=== PATIENT | male | born 1945 | race African-American/Black ===

== ENCOUNTER 2021-03-22 17:36 | Inpatient (IN) | payer MEDICAID, MEDICARE ==
[~2021-03-22] VITALS: Ht 180.3 cm; Wt 73.6 kg
--- NOTE | 2021-03-22 18:52 | REP ---
INDICATION: left hip pain. COMPARISON: None. TECHNIQUE: AP view pelvis. FINDINGS: There is a left femoral neck fracture with medial angulation. Prosthesis is noted of the proximal right femur. There is no other evidence of acute fracture. A stent overlies the left hemipelvis. There is a stent in the region of the proximal right superficial femoral artery. IMPRESSION: Left femoral neck fracture with medial angulation. <Electronically signed by Max Prado > 03/22/21 [id number]
--- NOTE | 2021-03-22 18:54 | REP ---
INDICATION: left hip pain COMPARISON: None. TECHNIQUE: AP and lateral left femur. FINDINGS: There is a left femoral neck fracture with medial angulation. I see no other evidence of acute fracture or dislocation. IMPRESSION: Left femoral neck fracture with medial angulation. <Electronically signed by Max Prado > 03/22/21 [id number]
--- NOTE | 2021-03-22 18:56 | REP ---
INDICATION: left hip pain. COMPARISON: None. TECHNIQUE: Single portable AP view of the chest was performed. FINDINGS: No acute infiltrate is seen. The heart is not significantly enlarged. There is mild calcification and tortuosity of the thoracic aorta. There is a stent extending from the left subclavian region into the left upper extremity. IMPRESSION: No acute pulmonary disease. <Electronically signed by Max Prado > 03/22/21 [id number]
[2021-03-22 19:21] LABS: BASO % 0.3 % (0.0-1.0); EOS # 0.1 10^3/uL (0.0-0.5); EOS % 3.2 % (0.0-3.0); HEMATOCRIT 31.4 % (42.0-52.0); HEMOGLOBIN 9.6 g/dl (13.5-17.5); LYMPH # 0.5 10^3/uL (1.5-5.0); LYMPH % 15.7 % (24.0-44.0); MEAN CORPUSCULAR HEMOGLOBIN 28.1 pg (27.0-33.0); MEAN CORPUSCULAR HGB CONC 30.6 g/dl (32.0-36.5); MEAN CORPUSCULAR VOLUME 91.8 fl (80.0-96.0); MONO # 0.4 10^3/uL (0.0-0.8); MONO % 12.5 % (2.0-8.0); NEUTROPHILS # 2.3 10^3/uL (1.5-8.5); NEUTROPHILS % 67.7 % (36.0-66.0); RED BLOOD COUNT 3.42 10^6/uL (4.30-6.10); WHITE BLOOD COUNT 3.5 10^3/uL (4.0-10.0)
[2021-03-22] MEDS ORDERED: ELIQ5TAB PO ×2 (19:26→21:48)
[2021-03-22] MEDS ORDERED: VIMP100T PO ×2 (19:33→21:48)
[2021-03-22] MEDS ORDERED: ACET-683 PO (19:33)
[2021-03-22] MEDS ORDERED: ATOR80TA59 PO ×2 (19:33→21:48)
[2021-03-22] MEDS ORDERED: BISA5TAB15 PO ×2 (19:33→21:48)
[2021-03-22 19:35] LABS: PLATELET COUNT, AUTOMATED 32 10^3/uL (150-450)
[2021-03-22 19:55] LABS: BILIRUBIN,DIRECT 0.1 MG/DL (0.0-0.2); BILIRUBIN,TOTAL 0.3 MG/DL (0.2-1.0); CALCIUM LEVEL 8.9 MG/DL (8.8-10.2); CREATININE FOR GFR 9.04 MG/DL (0.70-1.30); GLOMERULAR FILTRATION RATE 7.4 (>42); POTASSIUM SERUM 5.6 MEQ/L (3.5-5.1)
[2021-03-22 19:57] LABS: INR 1.37; PROTHROMBIN TIME 17.2 SECONDS (12.5-14.3)
[2021-03-22 19:58] LABS: PARTIAL THROMBOPLASTIN TIME 44.8 SECONDS (24.2-38.5)
[2021-03-22] MEDS ORDERED: LACT20EL PO (21:48)
[2021-03-22] MEDS ORDERED: DULC10SU2 PR (21:48)
[2021-03-22] MEDS ORDERED: LOPE1CAP5 PO (21:48)
[2021-03-22] MEDS ORDERED: ACET-897 PO (21:48)
[2021-03-22] MEDS ORDERED: AMLO1TAB25 PO (21:48)
[2021-03-22] MEDS ORDERED: LISI10TA22 PO (21:48)
[2021-03-22] MEDS ORDERED: SILE3TAB3 PO (21:48)
[2021-03-22] MEDS ORDERED: VIMP50TA3 PO (21:48)
[2021-03-22] MEDS ORDERED: BISACODYL 10 MG SUPP PR PRN (21:55)
[2021-03-22] MEDS ORDERED: HEPARIN SOD (PORCINE) 5000UNITS/ML 1ML VIAL/SYRINGE SC SCH (21:55)
[2021-03-22] MEDS ORDERED: ONDANSETRON 4 MG ORAL DISINTEGRATING TAB PO PRN (22:15)
--- NOTE | 2021-03-22 22:32 | HPEPDOC ---
[facility] Medical History & Physical Date of Admission March 22, 2021 Date of Service: March 22, 2021 Attending Physician: LIANG FARAH MD History and Physical CHIEF COMPLAINT: left hip pain HISTORY OF PRESENT ILLNESS: Jules Carson is a 75 year old male who presented to the ED today from [place] [facility] due to poorly controlled left hip pain. The patient had been at rehab after hospitalization at [facility] for a subdural hemorrhage. Prior to this patient had fall from a wheelchair while leaving [facility]. The patient's niece Rachel was with him at that time and states the patient was in the wheelchair which fell backwards, knocking over Rachel and her boyfriend as well. They did not feel he would have hurt his hip from this fall since he was sitting in the wheelchair and only hit his head. The patient was brought to the ED at that time and transferred to [facility] due to the subdural hematoma. He has recovered from this and was sent to [place] for rehab. One year ago in February 2020, the patient was living in [facility] and presented to [facility] and found to have a "hip fracture". Per the patient and the niece, the patient was taken to surgery for a hip replacement. The patient has continued to have left hip pain since that time. Considering the patient has a right hip replacement, it would make sense that this is the hip that was operated on. However, the patient claims it was his left hip that was injured 1 year ago, so it is very unclear as to what exactly happened then. The patient attended rehab for a time in [facility], then [place] live with his niece Rachel. The patient states he continued to have left hip pain that was not addressed. He states he struggled to walk due to the pain and has mainly used a wheelchair the past year. Per record, [facility] reports the patient fell 1 week ago at their rehab center. However, the patient and the niece are unaware of this event, so I was unable to obtain addition details. Currently, he report pain along the lateral aspect of the left thigh and hip. The patient is a poor historian due to dementia. His niece, Rachel, was contacted to help provide some of the history, but she is also not fully familiar with his medical history. Informations for the contacting patient's PCP was obtained so that we can obtain records to better detail the patient's medical history tomorrow morning. PAST MEDICAL HISTORY: 1. Subdural hematoma 2. HTN 3. Seizure disorder 4. CVA?, unclear based on history from niece 5. ESRD on HD TThS 6. Hx Hepatitis C 7. PVD PAST SURGICAL HISTORY: 1. Right hip replacement 2. Left arm AV fistula 3. Tooth extractions 4. Multiple vascular stents placed in upper and lower extremities seen on imaging 5. Left hip surgery? unclear based on history SOCIAL HISTORY: Live at home with his niece Rachel and her family. Recently moved up from [facility]. Former tobacco use, quit at least 10 years ago. Former heavy alcohol use, denies current use. Former illicit drug use, denies current use. FAMILY HISTORY: Patient unsure of family history. ALLERGIES: Please see below. REVIEW OF SYSTEMS: 10-point review of systems negative except as listed in HPI HOME MEDICATIONS: Please see below. PHYSICAL EXAMINATION: VITAL SIGNS: See below GENERAL: Alert, comfortable, in no acute distress HEENT: Normocephalic, atraumatic, moist mucous membranes NECK: Supple, trachea midline, no lymphadenopathy CARDIOVASCULAR: Regular rate and rhythm, normal S1 and S2. No murmurs, rubs, or gallops RESPIRATORY: Clear to auscultation bilaterally with equal air entry bilaterally. No wheezing, rhonchi, or rales. ABDOMEN: Soft, nontender, nondistended, bowel sounds present, no masses or hepatosplenomegaly appreciated EXTREMITIES: No cyanosis or edema. Pulses 2+/4 in bilateral upper and lower extremities. Tender to palpation on the left outer upper thigh. SKIN: Well healed scars on the left outer thigh, unsure if these are from a prior procedure NEUROLOGIC: Alert and oriented x2 to person and place. Oriented to month but not year or date. No focal deficits appreciated PSYCHIATRIC: Mood and affect appropriate LABORATORY DATA: See below. IMAGING: - CXR No acute pulmonary disease. - Femur XR Left femoral neck fracture with medial angulation. - Pelvis XR Left femoral neck fracture with medial angulation. MICROBIOLOGY: Please see below. ASSESSMENT: 75 year old male with PMHx including subdural hematoma, HTN, seizure disorder, possible CVA, ESRD on HD, hepatitis C s/p treatment, and PVD, who presented to the ED today from [facility] due to poorly controlled left hip pain, found to have left femur fracture PLAN: # Left hip pain 2/2 femur fracture - family seems to think this is the same hip that was injured 1 year ago, but the hip replacement is on the right side - day team to request records from [facility] to clarify events from 1 year ago - Per record, he may have fallen at rehab, but pt denies this and family is unaware. Last known fall was prior to admission to [facility] as detailed in the HPI. - Dr. Pham consulted for orthopedic surgery, would like patient to be off Eliquis for 2 days. Eliquis on hold. - pain control with tramadol and tylenol, zofran prn for nausea # Pancytopenia - unclear etiology, family and pt unaware, PCP records requested for history - no prior labs available to compare - check iron studies regarding low H/H - check reticulocyte count - ordered peripheral smear # Subdural hematoma - treated at [facility] - day team to request records in the AM # HTN - BP currently running low, hold home BP meds # Seizure disorder - continue home vimpat # CVA?, unclear based on history from niece - per family, this is the reason for Eliquis. Unclear why he would be on Eliquis unless he was also diagnosed with atrial fibrillation. Also unclear why this was not held after the recent hematoma. - day team to request records in the AM from [facility] and PCP to better understand hx and reason for Eliquis # ESRD on HD TThS - nephrology consulted for HD while inpatient - pt has left arm fistula # Dementia # Hx Hepatitis C s/p treatment per patient # PVD I have placed nursing orders to request records from prior PCP at [facility], [facility] regarding hip fracture and surgery 1 year ago, and [facility] regarding recent admission for subdural hematoma. Day team to follow up on these requests. DVT prophylaxis: Teds and SCDs. Avoid medical prophylaxis at this time due to low platelet count Disposition: admitted to med/surg pending surgical clearance and discontinuation of Eliquis for 2 day prior to left femur fracture repair. Vital Signs Vital Signs Date Time Temp Pulse Resp B/P (MAP) Pulse Ox O2 Delivery O2 Flow Rate FiO2 03/22/21 18:03 97.7 66 18 99/51 (67) 94 Room Air Laboratory Data Labs 24H Laboratory Tests 2 03/22/21 19:08: Immature Granulocyte % (Auto) 0.6, Neutrophils (%) (Auto) 67.7H, Lymphocytes (%) (Auto) 15.7L, Monocytes (%) (Auto) 12.5H, Eosinophils (%) (Auto) 3.2H, Basophils (%) (Auto) 0.3, Neutrophils # (Auto) 2.3, Lymphocytes # (Auto) 0.5L, Monocytes # (Auto) 0.4, Eosinophils # (Auto) 0.1, Basophils # (Auto) 0.0, Nucleated Red Blood Cells % (auto) 0.0, Immature Platelet Fraction 13.0H, Prothrombin Time 17.2H, Prothromb Time International Ratio 1.37, Activated Partial Thromboplast Time 44.8H, Anion Gap 9, Glomerular Filtration Rate 7.4L, Calcium Level 8.9, Total Bilirubin 0.3, Direct Bilirubin 0.1, Aspartate Amino Transf (AST/SGOT) 10, Alanine Aminotransferase (ALT/SGPT) 9L, Alkaline Phosphatase 357H, Total Protein 6.0L, Albumin 3.0L, Albumin/Globulin Ratio 1.0 CBC/BMP Laboratory Tests 03/22/21 19:08 Home Medications Scheduled Acetaminophen (Tylenol Extra Strength) 500 Mg Tablet, 1,000 MG PO DAILY Amlodipine Besylate (Amlodipine Besylate) 10 Mg Tablet, 10 MG PO DAILY HOLD IF SBP<100 Apixaban (Eliquis) 5 Mg Tablet, 5 MG PO BID Atorvastatin Calcium (Atorvastatin Calcium) 80 Mg Tablet, 80 MG PO QHS Doxepin HCl (Silenor) 3 Mg Tablet, 3 MG PO QHS Lacosamide (Vimpat) 100 Mg Tablet, 100 MG PO BID Lacosamide (Vimpat) 50 Mg Tablet, 50 MG PO 3XW TAKES ON MONDAY, MONDAY AND MONDAY AT 1700 Lisinopril (Lisinopril) 10 Mg Tablet, 10 MG PO DAILY HOLD IF SBP<100 Scheduled PRN Acetaminophen (Tylenol Extra Strength) 500 Mg Tablet, 1,000 MG PO DAILY PRN for PAIN Bisacodyl (Bisacodyl) 5 Mg Tablet.dr, 5 MG PO DAILY PRN for CONSTIPATION IF LACTULOSE IS INEFFECTIVE Bisacodyl (Dulcolax) 10 Mg Supp.rect, 10 MG MA DAILY PRN for CONSTIPATION IF BISACODYL TABLET IS INEFFECTIVE Lactulose (Lactulose) 10 Gm/15 Ml Solution, 30 ML PO DAILY PRN for CONSTIPATION IF NO BM IN 3 DAYS Loperamide HCl (Loperamide) 2 Mg Capsule, 2 MG PO Q4H PRN for AFTER EACH LOOSE STOOL Allergies Coded Allergies: Iodinated Contrast Media (Verified Allergy, Unknown, 03/22/21) lidocaine (Verified Allergy, Unknown, 03/22/21) oxycodone (Verified Allergy, Unknown, 03/22/21) GME ATTESTATION GME ATTESTATION My faculty preceptor for this patient encounter was physically present during the encounter and was fully available. All aspects of the patient interview, examination, medical decision making process, and medical care plan development were reviewed and approved by the faculty preceptor. The faculty preceptor is aware and concurs with the plan as stated in the body of this note and will attest to such by his/her cosignature. ATTENDING NOTE IRadha, have independently examined this patient and performed my own physical exam, as well as reviewed the documentation and edited where necessary. I have discussed in detail with the resident / student the findings and plan of treatment as documented by the resident / student and edited their note. I agree with their findings and treatment plan and have edited their documentation. I will continue to follow the patient during this hospital stay. PAT WINN D.O. March 22, 2021 22:31 LIANG FARAH MD April 02, 2021 18:40
[2021-03-22 23:02] LABS: PERCENT SATURATION 51.4 % (19.7-50.0)
[2021-03-22 23:37] LABS: RSV AMPLIFICATION NEGATIVE (NEGATIVE)
[2021-03-23 02:00] VITALS: BP 100/55
[2021-03-23] MEDS: ATORVASTATIN 20 MG TAB PO SCH ×2 (02:31→21:30)
[2021-03-23] MEDS: traMADol 50 MG TAB PO PRN ×4 (02:32→23:34)
[2021-03-23] MEDS: LACOSAMIDE 50 MG TAB (VIMPAT) PO SCH ×4 (02:32→21:30)
[2021-03-23] MEDS: ACETAMINOPHEN TAB 650MG DOSE (2X325MG) PO PRN ×2 (05:08→21:30)
[2021-03-23 06:00] VITALS: BP 99/54
[2021-03-23 09:34] LABS: HEMATOCRIT 26.6 % (42.0-52.0); HEMOGLOBIN 8.5 g/dl (13.5-17.5); MEAN CORPUSCULAR HEMOGLOBIN 28.4 pg (27.0-33.0); RED BLOOD COUNT 2.99 10^6/uL (4.30-6.10); WHITE BLOOD COUNT 3.2 10^3/uL (4.0-10.0)
[2021-03-23 09:37] LABS: PLATELET COUNT, AUTOMATED 32 10^3/uL (150-450)
[2021-03-23 10:15] LABS: ALBUMIN 2.7 GM/DL (3.2-5.2); BILIRUBIN,TOTAL 0.3 MG/DL (0.2-1.0); CALCIUM LEVEL 8.9 MG/DL (8.8-10.2); CREATININE FOR GFR 9.47 MG/DL (0.70-1.30); GLOMERULAR FILTRATION RATE 7.1 (>42); TOTAL PROTEIN 5.5 GM/DL (6.4-8.2)
[2021-03-23] MEDS ORDERED: DARBEPOETIN 200MCG/0.4ML *DIALYSIS* SYRINGE (J0882 PER 1MCG) IV SCH (11:50)
--- NOTE | 2021-03-23 12:46 | CR ---
CONSULTATION DATE: 03/23/2021 REASON FOR CONSULTATION: End-stage renal disease and hyperkalemia. HISTORY OF PRESENT ILLNESS: Mr. Carson is a 75-year-old gentleman who is currently in [facility]. Apparently he has moved from [facility] to this area to live with his niece. He has multiple chronic medical problems including hypertension, end-stage renal disease, hepatitis C history, prior history of stroke and seizure disorder, history of subdural hematoma and peripheral vascular disease. He has been on maintenance hemodialysis three times a week which is on Monday, and Monday schedule. The patient was admitted last evening due to severe pain in his left hip and was noted to have femoral neck fracture. Nephrology consultation was requested and the patient is seen this morning. MEDICAL HISTORY: Significant for: 1. History of longstanding hypertension. 2. Seizure disorder. 3. Prior stroke. 4. History of end-stage renal disease requiring maintenance hemodialysis. 5. History of subdural hematoma in the past. 6. History of hepatitis C. 7. Peripheral vascular disease. PAST SURGICAL HISTORY: Significant for: 1. Prior right hip replacement. 2. Left AV fistula creation which had thrombosed. 3. Left thigh hemodialysis graft which is currently being used. 4. Multiple vascular stents placed right and lower extremities. 5. Prior history of left hip surgery with unclear information. FAMILY HISTORY: Noncontributory for this admission. PERSONAL AND SOCIAL HISTORY: The patient is currently in rehab facility at [facility]. He is a former smoker who quit about 10 years ago. He also has history of heavy alcohol use in the past which he has quit. There is no history of current drug use although he does have prior history of illicit drug use. REVIEW OF SYSTEMS: Main problem is left hip pain. Denies any fever or chills. There is unclear history of a fall but the patient denies any recent falls. Ears, nose and throat are unremarkable. Cardiovascular system significant for hypertension. The patient denies any chest pain but does have some shortness of breath. Respiratory system is negative for cough or hemoptysis. GI system is negative for vomiting or diarrhea, significant for history of hepatitis C. is negative for dysuria or hematuria. He has history of end-stage renal disease requiring hemodialysis. Neurological system is significant for prior stroke and seizure disorder. He also has history of subdural hematoma due to a fall in the past. Psychosocial system is negative for depression or anxiety. Skin is negative for rash or ulcers. Endocrine system is negative for diabetes or thyroid problems. ALLERGIES: IODINATED CONTRAST, LIDOCAINE AND OXYCODONE. MEDICATIONS: Home medications include: 1. Amlodipine 10 mg daily. 2. Eliquis 5 mg twice daily. 3. Atorvastatin 80 mg daily. 4. Doxepin 3 mg at bedtime. 5. Vimpat 100 mg twice daily. 6. Lisinopril 10 mg daily. 7. Lactulose 30 mL PRN constipation. 8. Tylenol 650 mg PRN pain. 9. Loperamide 2 mg PRN for diarrhea. PHYSICAL EXAMINATION: GENERAL: Elderly -Palestinian male who is lying in the bed in twisted position due to left hip pain. VITAL SIGNS: Temperature 97 degrees Fahrenheit, heart rate 68 per minute, respiratory rate 18 per minute, blood pressure 99/54 mmHg, oxygen saturation 98% on room air. HEAD: Atraumatic. NECK: Supple without JVD or thyroid enlargement. HEART: Sounds are regular. LUNGS: Clear to auscultation. ABDOMEN: Soft and nontender, bowel sounds normal. EXTREMITIES: Without any cyanosis or clubbing. His left leg is internally rotated. He has hemodialysis graft in his left upper thigh which is patent. NEUROLOGICAL: He is awake and without focal deficit. LABORATORY DATA: From last evening show sodium 137, potassium 5.6, BUN 69 and creatinine 9.04. Calcium level was 9.5. Total protein 6.0 and albumin 3.0. WBC count 3.5, hemoglobin 9.6 and hematocrit 31.4. Platelets 32,000. PROBLEMS: 1. End-stage renal disease. The patient has been dialysis dependent and will be dialyzed this morning. 2. Hyperkalemia. He had mild hyperkalemia in the setting of end-stage renal disease which will be corrected with dialysis and no other intervention will be needed. 3. 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 Now possibly he has some blood loss. His iron studies are appropriate and I will put him on Aranesp 200 mcg once a week with hemodialysis. 4. Hypertension. Blood pressure seems to be somewhat low and he might need adjustment in his antihypertensive medication but would watch him closely, particularly after dialysis. At present his antihypertensive meds are on hold anyway. Thank you for involving me in the care of Mr. Carson. I will follow him along with you. ELIDIA
--- NOTE | 2021-03-23 12:59 | CR ---
CONSULTATION DATE: 03/23/2021 CHIEF COMPLAINT: Left hip pain/femoral neck fracture. HISTORY OF PRESENT ILLNESS: This 75-year-old man was consulted to me last evening. The patient had a left hip fracture on Eliquis, was transferred from [facility], unknown history. Hospitalist was asked to admit the patient so that I could assess him. The history is quite unclear. Per the patient has baseline dementia, he had a fall three months ago, possibly a fall even a year ago with a left hip fracture. He was admitted at one point to [facility]. I also spoke on the phone with the patient's niece. She quite irritated that apparently this had been going on for a year and nobody had fixed the hip. I did inform her that he has a total hip on the right side and no obvious signs of surgery on the left and that we would have to further investigate old medical records to fully determine the chronicity of this problem. Per the Hospitalist's notes, patient was taken for surgery for a hip replacement, continued to have left hip pain from that time. According to the patient as well, has been nonambulatory for the last three months. PAST MEDICAL HISTORY: Per the Hospitalist note; subdural hematoma, hypertension, seizure disorder, CVA, ESRD on hemodialysis, hepatitis C, PVD. MEDICATIONS: 1. Amlodipine. 2. Eliquis. 3. Atorvastatin. 4. Doxepin. 5. Vimpat. 6. Lisinopril. ALLERGIES: Iodine, Lidocaine and oxycodone. SURGICAL HISTORY: Right hip replacement, left arm AV fistula, tooth extractions, multiple vascular stents, left hip surgery, unclear based on history. SOCIAL HISTORY: Lives at home with his niece and her family. They recently moved up from [facility]. Former tobacco use. Quit 10 years ago. Former heavy alcohol use. PHYSICAL EXAMINATION: A 75-year-old man who looks his stated age. He is sitting up eating and appears comfortable. He responds appropriately. He has some strained speech. Left hip: No obvious incision although I did not fully log-roll fully onto his right side. Foot has chronic pedal edema. Normal sensation and motor function of the foot. He is able to dorsiflex and plantar flex his foot and wiggle his toes. Femur and pelvis radiographs were obtained. This shows left femoral neck fracture with medial angulation. The bony quality is extremely osteopenic throughout the entire femur with very thin cortices and very poor bone quality. There is a right total hip arthroplasty that appears well fixed. ASSESSMENT AND PLAN: This 75-year-old man has as left femoral neck fracture. It is unsure of the chronicity of this. I am unsure of his ambulatory status. I have discussed the findings with his niece who unfortunately became more agitated when I tried to parisi more history. My impression from her is that possibly this has been going on for over a year and there was already potentially a decision made to not operate on this. I also spoke with the Hospitalist and we will try to obtain more notes from [facility] as well as from the primary care physician in regard to this man's baseline status and ambulatory status as well as any previous interventions or findings with regard to his hips. For now, we make his diet as tolerated and hold his Eliquis.
[2021-03-23 14:00] VITALS: BP 100/54
--- NOTE | 2021-03-23 14:55 | REP ---
INDICATION: fracture. COMPARISON: None TECHNIQUE: Standard helical technique using 3 mm increments and reconstructed in both sagittal and coronal planes. FINDINGS: There is a somewhat permeative appearing anteriorly angulated left femoral neck fracture. The bones are demineralized generally. There is a large joint effusion. IMPRESSION: Left hip fracture and related findings as described above. Due to the appearance of the fracture fragments a pathologic fracture is suspected. Further workup may be required. <Electronically signed by Dedrick Angeles > 03/23/21 [id number]
--- NOTE | 2021-03-23 17:59 | IPNPDOC ---
Text Note Date of Service The patient was seen on 03/23/21. NOTE Subjective: Patient continues to complain of the left hip pain that he stated he has been having this pain for a few months. I talked to his niece, she told me that patient complains of left hip pain at least 3 3-4 months Objective: GENERAL APPEARANCE: NAD HEENT: no scleral icterus, no JVD, EOMI CARDIOVASCULAR: S1S2 LUNGS: CTA ABDOMEN: soft & not tender w palpitation MUSCULOSKELETAL: no cyanosis, tenderness over left hip INTEGUMENT: no generalized pallor NEUROLOGICAL: cranial nerve function from 2-12 intact intact, follows commands, speech not dysarthric Assessment plan Left hip fracture CT hip showed Left hip fracture. Due to the appearance of the fracture fragments a pathologic fracture is suspected. Appreciate/agree with ortho surgeon consult Pancytopenia Unclear etiology We'll obtain records from PCP Could be attributed to end-stage renal diseases and anemia of chronic diseases Anticoagulation on hold due to low platelet count Await B12 and folate. Iron within normal limit History of Subdural hematoma treated at [facility] We will obtain the recommendation from [facility] It's unclear why patient was on the Eliquis Hypertension Patient hypotensive. Hypertensive medications on hold Seizure disorder Continue home meds End-stage renal diseases Continue dialysis Dementia Continue home meds Osteoporosis Denosumab for outpatient settings Vitamin calcium and vitamin D DVT prophylaxis: Teds and SCDs VS,Fishbone, I+O VS, Fishbone, I+O Laboratory Tests 03/22/21 19:08 03/23/21 08:50 Vital Signs Date Time Temp Pulse Resp B/P (MAP) Pulse Ox O2 Delivery O2 Flow Rate FiO2 03/23/21 16:47 18 Room Air 03/23/21 14:00 98.3 71 100/54 (69) 98 I&O- Last 24 Hours up to 6 AM 03/23/21 06:00 Intake Total 100 ml Balance 100 ml THOMAS WING DO March 23, 2021 17:59
[2021-03-23 18:38] LABS: FOLATE 4.9 NG/ML
[2021-03-23] MEDS: SIMETHICONE 80MG CHEW TAB PO PRN (21:29)
[2021-03-23 22:00] VITALS: BP 98/53
[2021-03-23] MEDS: RAMELTEON 8 MG TAB (ROZEREM) PO PRN (23:34)
[2021-03-24 06:00] VITALS: BP 94/50
--- NOTE | 2021-03-24 07:25 | ECGEPIP ---
[facility] - ED Test Date: 2021-03-22 Pat Name: CLARY ROSARIO Department: Room: [place] [address] Gender: Male [employer] Sh[employer] Teacher: ANNIE : 1945 Requested By: KENJI PIERCE Order Number: [id number] Reading MD: Nacho Chacko Measurements Intervals [place] Rate: 66 P: 49 KS: 216 QRS: -85 QRSD: 172 T: 40 QT: 460 QTc: 482 Interpretive Statements Sinus rhythm with 1st degree AV block Right bundle branch block Left anterior fascicular block NO PRIORS FOR COMPARISON Electronically Signed on 03-24-2021 7:25:06 EDT by Nacho Chacko
[2021-03-24] MEDS: CALCIUM/VITAMIN D 500 MG TAB PO SCH (07:59)
[2021-03-24] MEDS: LACOSAMIDE 50 MG TAB (VIMPAT) PO SCH ×2 (07:59→20:32)
[2021-03-24] MEDS: traMADol 50 MG TAB PO PRN ×3 (10:35→22:37)
--- NOTE | 2021-03-24 12:01 | IPN ---
PROGRESS NOTE DATE: 03/24/2021 SUBJECTIVE: Mr. Carson is seen this morning on his bedside. He is feeling better today and reports that left hip pain is better compared to yesterday. He underwent hemodialysis yesterday, which he tolerated reasonably well until towards the end of treatment when his blood pressure went down and he requested to come off. He denies any dyspnea or chest pain. There is no nausea or vomiting. MEDICATIONS: His medications are reviewed and no changes are noted over the last 24 hours. He is not receiving any antihypertensives. He did receive Aranesp 200 mcg yesterday during dialysis. PHYSICAL EXAMINATION: VITALS: Temperature 97.3 degrees Fahrenheit, heart rate 60 per minute, respiratory rate 18 per minute, blood pressure 94/50 mmHg and oxygen saturation 98% on room air. HEENT: Head is atraumatic. Neck is supple and without JVD or thyroid enlargement. LUNGS: Clear to auscultation. HEART: Sounds are regular. ABDOMEN: Soft and nontender. Bowel sounds are normal. EXTREMITIES: Without any cyanosis or clubbing. His left leg is internally rotated. Left thigh hemodialysis graft is patent. NEUROLOGIC: He is at his baseline mentation. PROBLEMS: 1. End-stage renal disease: Patient was dialyzed yesterday and will be scheduled for next dialysis tomorrow. At present, there is no emergent need for dialysis today. 2. Anemia: His anemia did get worse, probably related to his left hip fracture. Will recheck the CBC tomorrow and monitor closely. He was given Aranesp 200 mcg yesterday. 3. Hypotension: His blood pressure is somewhat soft. We will limit any fluid removal with dialysis tomorrow. 4. Hyperkalemia: His potassium level was 5.6 on the day of admission and he was dialyzed with 2.0 mEq potassium bath. We anticipate normal potassium level tomorrow. 5. Left hip fracture: Patient is receiving pain medications and he has been seen by orthopedics. He was seen by ortho and it appears that patient was not interested in surgical intervention. At this point, we will continue with pain management.
--- NOTE | 2021-03-24 13:54 | IPNPDOC ---
Text Note Date of Service The patient was seen on 03/24/21. NOTE Subjective: Pt refused am labs. Pt denies fever, chills, chest pain, palpitations. Objective: GENERAL APPEARANCE: NAD HEENT: no scleral icterus, no JVD, EOMI CARDIOVASCULAR: S1S2 LUNGS: CTA ABDOMEN: soft & not tender w palpitation MUSCULOSKELETAL: no cyanosis, tenderness over left hip INTEGUMENT: no generalized pallor NEUROLOGICAL: cranial nerve function from 2-12 intact intact, follows commands, speech not dysarthric Assessment plan 75 year old male with PMHx including subdural hematoma, HTN, seizure disorder, possible CVA, ESRD on HD, hepatitis C s/p treatment, and PVD, who presented to the ED today from [facility] due to poorly controlled left hip pain, found to have left femur fracture Left hip fracture CT hip showed Left hip fracture. Due to the appearance of the fracture fragments a pathologic fracture is suspected. Ortho team follows him Await medical records from [facility] Pancytopenia/ anemia of chronic diseases Unclear etiology We'll obtain records from PCP Could be attributed to end-stage renal diseases and anemia of chronic diseases Anticoagulation on hold due to low platelet count B12 low and folate wnl. Iron within normal limit B12 replacement continue [facility] History of Subdural hematoma treated at [facility] We will obtain the recommendation from [facility] It's unclear why patient was on the Eliquis Hypertension Patient hypotensive. Hypertensive medications on hold Seizure disorder Continue home meds End-stage renal diseases Continue dialysis Dementia Continue home meds Osteoporosis Denosumab for outpatient settings Vitamin calcium and vitamin D DVT prophylaxis: Teds and SCDs VS,Fishbone, I+O VS, Fishbone, I+O Vital Signs Date Time Temp Pulse Resp B/P (MAP) Pulse Ox O2 Delivery O2 Flow Rate FiO2 03/24/21 11:05 18 Room Air 03/24/21 06:00 97.3 61 94/50 (65) 98 I&O- Last 24 Hours up to 6 AM 03/24/21 06:00 Intake Total 150 ml Output Total 1000 ml Balance -850 ml THOMAS WING DO March 24, 2021 13:54
[2021-03-24 14:00] VITALS: BP 97/53
[2021-03-24] MEDS: CYANOCOBALAMIN 500 MCG TAB PO SCH (15:01)
[2021-03-24] MEDS: ATORVASTATIN 20 MG TAB PO SCH (20:32)
[2021-03-24 22:00] VITALS: BP 93/52
[2021-03-25] MEDS: CYANOCOBALAMIN 500 MCG TAB PO SCH (05:48)
[2021-03-25] MEDS: traMADol 50 MG TAB PO PRN ×2 (05:48→21:09)
[2021-03-25] MEDS: CALCIUM/VITAMIN D 500 MG TAB PO SCH (05:49)
[2021-03-25] MEDS: LACOSAMIDE 50 MG TAB (VIMPAT) PO SCH ×3 (05:49→21:07)
[2021-03-25] MEDS: SIMETHICONE 80MG CHEW TAB PO PRN (05:51)
[2021-03-25 06:00] VITALS: BP 93/51
--- NOTE | 2021-03-25 10:09 | IPN ---
PROGRESS NOTE DATE: 03/25/2021 CHIEF COMPLAINT: Follow-up left hip fracture. HISTORY OF PRESENT ILLNESS: This 75-year-old man was transferred from [facility]. An x-ray demonstrated a left femoral neck fracture. I did talk to his niece, who apparently is taking care of him, and she said that apparently he had a left-sided hip fracture possibly untreated. X-rays were consistent with right total hip arthroplasty and left femoral neck fracture. We attempted to obtain old records from outside and apparently this is where he had an original hip fracture fixed presumably on the right side with a total hip arthroplasty. The history of this man's ambulatory status again is unclear from the patient as he has dementia and his niece was a bit unclear on the phone as well and agitated. Possibly non ambulatory for months? As such, I obtained a CT scan of the left hip to assess the chronicity of this. CT scan was reviewed by myself, as well as the radiologist. This demonstrates left hip fracture with a somewhat permeative appearing anteriorly angulated left femoral neck fracture. Bones are deminerialized generally. There is a large joint effusion. Further workup may be required due to suspicion of pathologic hip fracture. ASSESSMENT AND PLAN: This is a 75-year-old man with suspicion of a left hip pathologic fracture with a permeative lesion. I took the liberty of talking to Dr. Wilson, one of the tumor surgeons in [place] last evening. He recommended transfer through the transfer service to [facility]. There, he would be able to review the images, possibly perform telehealth, and have one of his partners start the process of workup for this potentially pathologic hip fracture. I also spoke to Dr. Ahuja numerous times over the last two days in an attempt to fully work this many up prior to proceeding to surgery. I spoke to Dr. Ahuja this morning at 8 a.m. and asked him to help coordinate transfer to a tertiary care center where appropriate workup and services can be performed for this man. [facility]AN[facility]arta
[2021-03-25] MEDS: ACETAMINOPHEN TAB 650MG DOSE (2X325MG) PO PRN (10:22)
[2021-03-25 12:29] LABS: BASO % 0.7 % (0.0-1.0); EOS # 0.1 10^3/uL (0.0-0.5); EOS % 2.9 % (0.0-3.0); HEMOGLOBIN 8.1 g/dl (13.5-17.5); LYMPH # 0.4 10^3/uL (1.5-5.0); LYMPH % 13.6 % (24.0-44.0); MEAN CORPUSCULAR HEMOGLOBIN 28.1 pg (27.0-33.0); MEAN CORPUSCULAR HGB CONC 31.2 g/dl (32.0-36.5); MEAN CORPUSCULAR VOLUME 90.3 fl (80.0-96.0); MONO # 0.3 10^3/uL (0.0-0.8); MONO % 10.3 % (2.0-8.0); NEUTROPHILS % 72.1 % (36.0-66.0); RED BLOOD COUNT 2.88 10^6/uL (4.30-6.10); WHITE BLOOD COUNT 2.7 10^3/uL (4.0-10.0)
[2021-03-25 12:34] LABS: PLATELET COUNT, AUTOMATED 28 10^3/uL (150-450)
[2021-03-25 12:45] LABS: ALBUMIN 2.9 GM/DL (3.2-5.2); BILIRUBIN,TOTAL 0.3 MG/DL (0.2-1.0); CREATININE FOR GFR 2.54 MG/DL (0.70-1.30); GLOMERULAR FILTRATION RATE 32.2 (>42); MAGNESIUM LEVEL 1.8 MG/DL (1.8-2.4); PHOSPHORUS LEVEL 1.6 MG/DL (2.5-4.9); POTASSIUM SERUM 3.3 MEQ/L (3.5-5.1); TOTAL PROTEIN 5.6 GM/DL (6.4-8.2)
[2021-03-25 14:00] VITALS: BP 117/52
--- NOTE | 2021-03-25 14:54 | IPNPDOC ---
Text Note Date of Service The patient was seen on 03/25/21. NOTE Subjective: No any acute events overnight. Patient denies fever, chills, nausea or vomiting Objective: GENERAL APPEARANCE: NAD HEENT: no scleral icterus, no JVD, EOMI CARDIOVASCULAR: S1S2 LUNGS: CTA ABDOMEN: soft & not tender w palpitation MUSCULOSKELETAL: no cyanosis, tenderness over left hip INTEGUMENT: no generalized pallor NEUROLOGICAL: cranial nerve function from 2-12 intact intact, follows commands, speech not dysarthric Assessment plan 75 year old male with PMHx including subdural hematoma, HTN, seizure disorder, possible CVA, ESRD on HD, hepatitis C s/p treatment, and PVD, who presented to the ED today from [facility] due to poorly controlled left hip pain, found to have left femur fracture Left hip fracture CT hip showed Left hip fracture. Due to the appearance of the fracture fragments a pathologic fracture is suspected. Ortho team recommended to transfer patient to [facility] for orthopedic oncologist evaluation Await medical records from [facility] Pancytopenia/ anemia of chronic diseases Unclear etiology We'll obtain records from PCP Could be attributed to end-stage renal diseases and anemia of chronic diseases Anticoagulation on hold due to low platelet count B12 low and folate wnl. Iron within normal limit B12 replacement continue Aranesp Peripheral smear review showed Normocytic hypochromic RBCs with mild anisopoikilocytosis. No nRBCs. Morphologically unremarkable leukocytes; few left shifted neutrophils present. Thrombocytopenia with rare large platelet forms. I talked to Dr. Almonte , she recommend bone marrow biopsy Will proceed with CT abdomen and pelvis, CT chest History of Subdural hematoma treated at [facility] We will obtain the recommendation from [facility] It's unclear why patient was on the Eliquis EKG showed sinus rhythm. Hypertension Patient hypotensive. Hypertensive medications on hold Seizure disorder Continue home meds End-stage renal diseases Continue dialysis Dementia Continue home meds Osteoporosis Denosumab for outpatient settings Vitamin calcium and vitamin D DVT prophylaxis: Teds and SCDs VS,Fishbone, I+O VS, Fishbone, I+O Laboratory Tests 03/25/21 11:36 Vital Signs Date Time Temp Pulse Resp B/P (MAP) Pulse Ox O2 Delivery O2 Flow Rate FiO2 03/25/21 06:18 16 03/25/21 06:00 97.6 68 93/51 (65) 98 Room Air l I&O- Last 24 Hours up to 6 AM 03/25/21 06:00 Intake Total 960 ml Output Total 0 ml Balance 960 ml THOMAS WING DO March 25, 2021 14:54
--- NOTE | 2021-03-25 15:15 | IPN ---
PROGRESS NOTE DATE: 03/25/2021 SUBJECTIVE: Mr. Carson was seen this morning during hemodialysis. He is feeling well and his left hip pain is controlled with medications. He denies any dyspnea, chest pain, nausea, or vomiting. He has no fever or chills. OBJECTIVE: VITAL SIGNS: Temperature 97.6 degrees Fahrenheit, heart rate 68 per minute, respiratory rate 18 per minute, blood pressure 93/50 mmHg, and oxygen saturation 98% on room air. HEAD: Atraumatic. NECK: Supple without JVD or thyroid enlargement. HEART: Sounds regular. LUNGS: Clear to auscultation. ABDOMEN: Soft and nontender. Bowel sounds are normal. EXTREMITIES: Without any cyanosis or clubbing. Left thigh hemodialysis graft is being used for dialysis. LABORATORY DATA: Today's labs show WBC count 2.7, hemoglobin 8.1, hematocrit 26, platelets 28,000. Sodium 138, potassium 3.3, BUN 40, creatinine 2.4, but these labs are drawn during dialysis. PROBLEMS: 1. End-stage renal disease. The patient is being dialyzed and he is tolerating dialysis very well. We are removing only 1 liter of fluid today. 2. Hypokalemia. Today's potassium is 3.3, which is unexpectedly low as it is drawn during dialysis. I would recommend not replacing it. His electrolytes will be checked again tomorrow. 3. Anemia. His anemia did get worse probably related to the left hip fracture. We are giving him Aranesp 200 mcg once a week. Follow-up CBC will be needed. 4. Left hip fracture. The patient is managed with medications. Orthopedics have decided for no surgery.
--- NOTE | 2021-03-25 16:50 | IPN ---
PROGRESS NOTE DATE: 03/25/2021 CHIEF COMPLAINT: Post admission day #2 left femoral neck fracture, pathologic fracture. HISTORY OF PRESENT ILLNESS: This is [id number] man who was admitted with a left femoral neck fracture. Upon further questioning of the patient, past medical records, as well as the patient's niece, Rachel, possibly nonambulatory, complaining of chronic left hip pain and wheelchair bound, it sounds like. I performed a CT scan to try to assess the chronicity. This showed a pathologic fracture, permeative lesion. I talked to Dr. Wilson, tumor surgeon in [place]. I attempted transfer today to a tertiary care center. They did not have any beds. PHYSICAL EXAMINATION: This is a 75-year-old man. He does recall meeting me already. He is in good spirits. ASSESSMENT AND PLAN: This is a 75-year-old man with pathologic left femoral neck fracture with a permeative lesion. I still do recommend transfer to a tertiary care center where there is a tumor specialist. In the meantime, rather than delay further care, we will obtain CT chest, abdomen and pelvis, consultation from tumor specialist here locally at [facility], as well as screening, possible blood work, to try to determine if there is a primary source and continue attempts to transfer to a hospital with orthopedic tumor care, such as [place] or [place]. The patient's next of kin understands and she may come up to [place] tomorrow. She has asked to be contacted if the patient is transferred and I have given her my cell phone if there are any further questions or concerns.
--- NOTE | 2021-03-25 16:52 | REP ---
INDICATION: malignancy. COMPARISON: None TECHNIQUE: The exam is markedly limited. No intravenous or oral bowel preparatory contrast was administered prior to the exam. In addition, the patient's arms are crossed over the upper abdomen which causes imaging artifact. FINDINGS: There is cholelithiasis. The spleen is globular in shape without chris splenomegaly. There is no gross hepatic abnormality. There is evidence of polycystic renal disease. There are renovascular calcifications bilaterally. There is low-density thickening of the adrenal glands. The pancreas is poorly imaged. No large masses are seen arising from the pancreas. There is no gross free fluid or free air. No gross abnormality is seen involving the abdominal aorta or para-aortic regions. There is no gross bowel abnormality. Significant spray artifact further limits the exam arising from a right hip prosthesis. There is a pathological left hip fracture. The bones are markedly demineralized. Diffuse increased bony density seen throughout the vertebral bodies. IMPRESSION: 1. Exam is markedly limited as described above. 2. Cholelithiasis. 3. Suspect polycystic renal disease. 4. Suspect left hip pathologic fracture. 5. Diffuse increased vertebral body density. Renal osteodystrophy versus metastatic prostate disease. Certainly, other etiologies exist. <Electronically signed by Dedrick Angeles > 03/25/21 [id number]
[2021-03-25] MEDS ORDERED: HEPARIN SOD (PORCINE) 5000UNITS/ML 1ML VIAL/SYRINGE SQ SCH (21:00)
[2021-03-25] MEDS: ATORVASTATIN 20 MG TAB PO SCH (21:11)
[2021-03-25 22:00] VITALS: BP 96/44
[2021-03-26 06:36] VITALS: BP 92/45
[2021-03-26] MEDS: CYANOCOBALAMIN 500 MCG TAB PO SCH (09:03)
[2021-03-26] MEDS: CALCIUM/VITAMIN D 500 MG TAB PO SCH (09:03)
[2021-03-26] MEDS: LACOSAMIDE 50 MG TAB (VIMPAT) PO SCH ×2 (09:03→20:56)
[2021-03-26] MEDS: traMADol 50 MG TAB PO PRN ×2 (09:59→17:14)
--- NOTE | 2021-03-26 10:13 | IPNPDOC ---
Text Note Date of Service The patient was seen on 03/26/21. NOTE Subjective: No any acute events overnight. No fever, chills. No any signs of bleeding Objective: GENERAL APPEARANCE: Pleasantly confused HEENT: no scleral icterus, no JVD, EOMI CARDIOVASCULAR: S1S2 LUNGS: CTA ABDOMEN: soft & not tender w palpitation MUSCULOSKELETAL: no cyanosis, tenderness over left hip INTEGUMENT: no generalized pallor NEUROLOGICAL: cranial nerve function from 2-12 intact intact, follows commands, speech not dysarthric Assessment plan 75 year old male with PMHx including subdural hematoma, HTN, seizure disorder, possible CVA, ESRD on HD, hepatitis C s/p treatment, and PVD, who presented to the ED today from [facility] due to poorly controlled left hip pain, found to have left femur fracture Left hip fracture CT hip showed Left hip fracture. Due to the appearance of the fracture fragments a pathologic fracture is suspected. Ortho team recommended to transfer patient to [facility] for orthopedic oncologist evaluation Await medical records from [facility] Await bed [facility] Pancytopenia/ anemia of chronic diseases Unclear etiology We'll obtain records from PCP Could be attributed to end-stage renal diseases and anemia of chronic diseases Anticoagulation on hold due to low platelet count B12 low and folate wnl. Iron within normal limit B12 replacement continue Aranes Peripheral smear review showed Normocytic hypochromic RBCs with mild anisopoikilocytosis. No nRBCs. Morphologically unremarkable leukocytes; few left shifted neutrophils present. Thrombocytopenia with rare large platelet forms. I talked to Dr. Almonte , she recommend bone marrow biopsy CT abdomen and pelvis showed diffuse increased vertebral body density. Renal osteodystrophy versus metastatic prostate disease Await CT chest report Will check PSA, there is concern for metastatic prostate cancer History of Subdural hematoma treated at [facility] We will obtain the recommendation from [facility] It's unclear why patient was on the Eliquis EKG showed sinus rhythm. Hypertension Patient hypotensive. Hypertensive medications on hold Seizure disorder Continue home meds End-stage renal diseases Continue dialysis Dementia Continue home meds Osteoporosis Denosumab for outpatient settings Vitamin calcium and vitamin D DVT prophylaxis: Teds and SCDs VS,Fishbone, I+O VS, Fishbone, I+O Laboratory Tests 03/25/21 11:36 Vital Signs Date Time Temp Pulse Resp B/P (MAP) Pulse Ox O2 Delivery O2 Flow Rate FiO2 03/26/21 06:36 98.0 60 18 92/45 (61) 94 Room Air I&O- Last 24 Hours up to 6 AM 03/26/21 06:00 Intake Total 0 ml Output Total 1000 ml Balance -1000 ml THOMAS WING DO March 26, 2021 10:13
--- NOTE | 2021-03-26 10:40 | REP ---
INDICATION: malignancy. COMPARISON: None. TECHNIQUE: CT chest performed without the use of intravenous contrast. Sagittal and coronal reconstruction images are performed. FINDINGS: Lungs: There is mild bibasilar fibrotic change. There is a focal ill-defined 1.3 cm parenchymal opacity which is not solid, located in a subpleural location of the posterolateral right lower lobe, the epicenter is on image 65. This could represent focal atelectasis or infiltrate but follow-up is suggested. Mediastinum: No gross adenopathy. Caitlin: No gross adenopathy. Axilla: No gross adenopathy. Pleura: No effusion. Heart: There is mild cardiomegaly. Thoracic aorta: No aneurysm. Visualized osseous structures: There is diffuse increased density of the visualized vertebral bodies. I suspect this represents renal osteodystrophy. Metastatic disease cannot be excluded. There is a stent extending from the left subclavian artery into the left upper extremity, with the distal tip in the forearm. This appears to be feeding an AV shunt. IMPRESSION: There is a focal ill-defined 1.3 cm parenchymal opacity which is not solid, located in a subpleural location of the posterolateral right lower lobe, the epicenter is on image 65. This could represent focal atelectasis or infiltrate but follow-up is suggested. There is diffuse increased density of the visualized vertebral bodies. I suspect this represents renal osteodystrophy. Metastatic disease cannot be excluded. <Electronically signed by Max Prado > 03/26/21 1030
--- NOTE | 2021-03-26 11:57 | IPN ---
PROGRESS NOTE DATE: 03/26/2021 SUBJECTIVE: Mr. Carson is seen this morning on his bedside. He is feeling well and denies any complaints. He is telling me that he is going to be transferred to [facility] for possible hip surgery. He denies any nausea, vomiting, dyspnea or chest pain. He was dialyzed yesterday and tolerated his dialysis reasonably well. PHYSICAL EXAMINATION: VITALS: Temperature 98 degrees Fahrenheit, heart rate 60 per minute, respiratory rate 18 per minute, blood pressure 92/45 mmHg and oxygen saturation 94% on room air. HEENT: Head is atraumatic. Neck is supple and without JVD or thyroid enlargement. LUNGS: Clear to auscultation. HEART: Sounds are regular. ABDOMEN: Soft and nontender. Bowel sounds are normal. EXTREMITIES: Without any cyanosis or clubbing. Left thigh hemodialysis graft is patent. NEUROLOGIC: He is without any change. LABORATORY DATA: Patient did not have any new labs today and yesterday's labs have been reviewed. PROBLEMS: 1. End-stage renal disease: Patient was dialyzed yesterday and next dialysis will be scheduled for tomorrow unless he gets transferred today. His volume status is well compensated. 2. Hypokalemia: His potassium level was 3.3 yesterday. He did get some potassium supplement. This lab was drawn during dialysis, which most likely contributed to his hypokalemia. We will recheck his labs tomorrow. 3. Anemia: Most likely related to end-stage renal disease and left hip fracture. He is likely to require transfusion if he gets hip surgery. So far, he has been doing okay. This last CBC was also drawn during dialysis, which may have falsely shown a drop in his hemoglobin. CBC should be checked again tomorrow. 4. Thrombocytopenia: This is a chronic issue and he does not receive any Heparin during dialysis.
[2021-03-26 14:00] VITALS: BP 93/49
[2021-03-26 14:03] LABS: BASO % 0.3 % (0.0-1.0); EOS # 0.1 10^3/uL (0.0-0.5); EOS % 2.5 % (0.0-3.0); HEMATOCRIT 30.8 % (42.0-52.0); HEMOGLOBIN 9.4 g/dl (13.5-17.5); LYMPH # 0.4 10^3/uL (1.5-5.0); LYMPH % 11.5 % (24.0-44.0); MEAN CORPUSCULAR HEMOGLOBIN 28.5 pg (27.0-33.0); MEAN CORPUSCULAR HGB CONC 30.5 g/dl (32.0-36.5); MEAN CORPUSCULAR VOLUME 93.3 fl (80.0-96.0); MONO # 0.3 10^3/uL (0.0-0.8); MONO % 8.7 % (2.0-8.0); NEUTROPHILS # 2.7 10^3/uL (1.5-8.5); NEUTROPHILS % 76.7 % (36.0-66.0); WHITE BLOOD COUNT 3.6 10^3/uL (4.0-10.0)
[2021-03-26 14:07] LABS: PLATELET COUNT, AUTOMATED 47 10^3/uL (150-450)
[2021-03-26 14:31] LABS: CK-MB VALUE MASS < 1.0 NG/ML (<3.6); CPK CREATINE PHOSPHOKINASE 45 U/L (39-308); MB/CK RELATIVE INDEX 2.22 (< OR =4); TROPONIN I 0.02 NG/ML (< 0.10)
[2021-03-26 14:48] LABS: ALBUMIN 3.2 GM/DL (3.2-5.2); BILIRUBIN,TOTAL 0.4 MG/DL (0.2-1.0); CALCIUM LEVEL 9.6 MG/DL (8.8-10.2); CREATININE FOR GFR 4.83 MG/DL (0.70-1.30); GLOMERULAR FILTRATION RATE 15.4 (>42); POTASSIUM SERUM 4.3 MEQ/L (3.5-5.1); TOTAL PROTEIN 6.2 GM/DL (6.4-8.2)
--- NOTE | 2021-03-26 18:17 | CR.PDOC ---
General Date of Consultation: March 26, 2021 Referring Provider: THOMAS WING DO Attending Physician: THOMAS WING DO Consultation REASON FOR CONSULTATION/CHIEF COMPLAINT: Pancytopenia HISTORY OF PRESENT ILLNESS: 75-year-old with known end-stage renal disease, currently admitted for left hip fracture. On admission noted to have pancytopenia. Known to have anemia related to endstage renal disease and according to Dr. Flowers's note also known to have chronic thrombocytopenia. When asked, the patient does not know onset of pancytopenia. His niece was aware of low blood counts but no details put forward. The niece reported no recent infections. No recurring infections. ALLERGIES: Please see below. HOME MEDICATIONS: Please see below. PAST MEDICAL HISTORY: End-stage renal disease. Stroke. Seizure disorder. Hepatitis C. Peripheral vascular disease. Hypertension. FAMILY HISTORY: His sister had lung cancer. SOCIAL HISTORY: Former smoker. History of alcohol use. REVIEW OF SYSTEMS: The patient's niece reported weight loss. The patient reported left leg pain. History of subdural hematoma in the past. Rest of review of systems negative. PHYSICAL EXAMINATION: VITAL SIGNS: Please see below. GENERAL APPEARANCE: Lying in bed. Answered questions appropriately. Oriented to place but not to time. HEENT: Pinkish conjunctiva. Anicteric. Atraumatic. RESPIRATORY: Fair air entry. No rales no rhonchi, no wheezing. CARDIOVASCULAR: S1, S2 regular. ABDOMEN: Soft, nontender, no guarding, positive bowel sounds. EXTREMITIES: Weakness on left arm. Could not move left leg fully. NEUROLOGICAL: Alert. Oriented to place and person but not to time. PSYCHIATRIC: Normal mood. LABORATORY DATA: Please see below. ASSESSMENT/PLAN: 75-year-old with 1.pancytopenia. Anemia, likely partly related to renal insufficiency. Iron studies suggestive of anemia of chronic disease with high ferritin level and low TIBC, although with a high percent transferrin saturation. Soluble transferrin receptor pending. Neutrophil count adequate. As per Dr. Flowers's note, thrombocytopenia is chronic. Vitamin B12 and folate levels normal. Peripheral smear review 03/22/2021 showed "normocytic hypochromic RBCs with mild anisopoikilocytosis. No nRBCs. Morphologically unremarkable leukocytes; few left shifted neutrophils present. Thrombocytopenia with rare large platelet forms. No atypical lymphocytes or blasts identified." CT abdomen and pelvis 03/25/2021 showed no splenomegaly and no hepatic abnormality. Suggest bone marrow aspiration and biopsy to assess for possible etiology of pancytopenia. In the meantime, transfusion support as needed for hemoglobin less than 7 and platelet count less than 10 or less than 50 and has signs of active bleeding. 2. Suspected pathologic fracture, left hip. PSA normal. 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 Awaiting surgery for left hip fracture. Thank you for referring Mr. Jules Carson. Vital Signs/I&O Vital Signs Date Time Temp Pulse Resp B/P (MAP) Pulse Ox O2 Delivery O2 Flow Rate FiO2 03/26/21 17:44 18 03/26/21 14:00 98.5 74 93/49 (64) 100 Room Air I&O- Last 24 Hours up to 6 AM 03/26/21 06:00 Intake Total 0 ml Output Total 1000 ml Balance -1000 ml Laboratory Data Labs 24H Laboratory Tests 2 03/26/21 13:48: Immature Granulocyte % (Auto) 0.3, Neutrophils (%) (Auto) 76.7H, Lymphocytes (%) (Auto) 11.5L, Monocytes (%) (Auto) 8.7H, Eosinophils (%) (Auto) 2.5, Basophils (%) (Auto) 0.3, Neutrophils # (Auto) 2.7, Lymphocytes # (Auto) 0.4L, Monocytes # (Auto) 0.3, Eosinophils # (Auto) 0.1, Basophils # (Auto) 0.0, Nucleated Red Blood Cells % (auto) 0.0, Immature Platelet Fraction 16.0H, Anion Gap 8, Glomerular Filtration Rate 15.4L, Calcium Level 9.6, Magnesium Level 2.0, Total Bilirubin 0.4, Aspartate Amino Transf (AST/SGOT) 11, Alanine Aminotransferase (ALT/SGPT) 11L, Alkaline Phosphatase 367H, Total Creatine Kinase 45, Creatine Kinase MB < 1.0, Creatine Kinase MB Relative Index 2.22, Troponin I 0.02, Total Protein 6.2L, Albumin 3.2, Albumin/Globulin Ratio 1.1, Prostate Specific Antigen Screen 1.62 CBC/BMP Laboratory Tests 03/26/21 13:48 Microbiology Microbiology 03/25/21 Respiratory Virus Panel (PCR) ([facility]) - Final, Complete Allergies Coded Allergies: Iodinated Contrast Media (Verified Allergy, Unknown, 03/22/21) lidocaine (Verified Allergy, Unknown, 03/22/21) oxycodone (Verified Allergy, Unknown, 03/22/21) Home Medications Scheduled Acetaminophen (Tylenol Extra Strength) 500 Mg Tablet, 1,000 MG PO DAILY, (Reported) Amlodipine Besylate (Amlodipine Besylate) 10 Mg Tablet, 10 MG PO DAILY, (Repo rted) HOLD IF SBP<100 Apixaban (Eliquis) 5 Mg Tablet, 5 MG PO BID, (Reported) Atorvastatin Calcium (Atorvastatin Calcium) 80 Mg Tablet, 80 MG PO QHS, (Reported) Doxepin HCl (Silenor) 3 Mg Tablet, 3 MG PO QHS, (Reported) Lacosamide (Vimpat) 100 Mg Tablet, 100 MG PO BID, (Reported) Lacosamide (Vimpat) 50 Mg Tablet, 50 MG PO 3XW, (Reported) TAKES ON MONDAY, MONDAY AND MONDAY AT 1700 Lisinopril (Lisinopril) 10 Mg Tablet, 10 MG PO DAILY, (Reported) HOLD IF SBP<100 Scheduled PRN Acetaminophen (Tylenol Extra Strength) 500 Mg Tablet, 1,000 MG PO DAILY PRN for PAIN, (Reported) Bisacodyl (Bisacodyl) 5 Mg Tablet.dr, 5 MG PO DAILY PRN for CONSTIPATION, (Reported) IF LACTULOSE IS INEFFECTIVE Bisacodyl (Dulcolax) 10 Mg Supp.rect, 10 MG AR DAILY PRN for CONSTIPATION, (Reported) IF BISACODYL TABLET IS INEFFECTIVE Lactulose (Lactulose) 10 Gm/15 Ml Solution, 30 ML PO DAILY PRN for CONSTIPATION, (Reported) IF NO BM IN 3 DAYS Loperamide HCl (Loperamide) 2 Mg Capsule, 2 MG PO Q4H PRN for AFTER EACH LOOSE STOOL, (Reported) JANET BAUTISTA MD March 26, 2021 18:17
--- NOTE | 2021-03-26 20:43 | ECGEPIP ---
[facility] Test Date: 2021-03-26 Pat Name: CLARY ROSARIO Department: Room: [place] [address] Gender: Male Health Support Specialist: davide : 1945 Requested By: THOMAS WING Order Number: [id number] Reading MD: Ankur Tinajero Measurements Intervals [place] Rate: 67 P: 41 LA: QRS: 269 QRSD: 178 T: 46 QT: 462 QTc: 488 Interpretive Statements Sinus rhythm with 1st degree AV block, Right bundle-branch block with left anterior fascicular block No significant change compared with 03/22/2021. Electronically Signed on 03-26-2021 20:43:29 EDT by Ankur Tinajero
[2021-03-26] MEDS: RAMELTEON 8 MG TAB (ROZEREM) PO PRN (20:56)
[2021-03-26] MEDS: ACETAMINOPHEN TAB 650MG DOSE (2X325MG) PO PRN (20:57)
[2021-03-26] MEDS: ATORVASTATIN 20 MG TAB PO SCH (20:57)
[2021-03-26 22:00] VITALS: BP 111/57
[2021-03-27] MEDS: traMADol 50 MG TAB PO PRN ×4 (03:11→23:23)
[2021-03-27 06:00] VITALS: BP 91/50
[2021-03-27] MEDS: CYANOCOBALAMIN 500 MCG TAB PO SCH (06:45)
[2021-03-27] MEDS: CALCIUM/VITAMIN D 500 MG TAB PO SCH (06:46)
[2021-03-27] MEDS: LACOSAMIDE 50 MG TAB (VIMPAT) PO SCH ×3 (06:46→20:48)
--- NOTE | 2021-03-27 16:09 | IPNPDOC ---
Text Note Date of Service The patient was seen on 03/27/21. NOTE Hospitalist Progress Note Subjective: The patient reports that he does continue to have pain/aching in the left hip region, but otherwise does not have any other complaints at this time. He is aware that we are trying to find him a bed at a different facility at this time. He is graciously patient. Remainder of his review of systems is negative. Objective: General: Awake, alert. Not in any acute distress. HEENT: Head normocephalic, atraumatic, sclera are nonicteric. Hearing is grossly intact to conversation. Respiratory: Clear to auscultation bilaterally with no wheezes, rales, or rhonchi. Cardiovascular: Regular rate and rhythm, with no rubs, gallops, or murmur. Abdomen: Soft, nontender, nondistended, no hepatosplenomegaly appreciated. Bowel sounds present. Extremities: 2+ pulses in the radial and dorsalis pedis bilaterally. No evidence of clubbing or cyanosis. Assessment: -Pathologic left femoral neck fracture -End-stage renal disease on dialysis, management per nephrology -Hypokalemia, intermittent, corrected with dialysis -Anemia of chronic disease, not requiring transfusion at this time -Thrombocytopenia, chronic -Pancytopenia -History of subdural hematoma treated at [facility] -Hypertension -Seizure disorder -Osteoporosis -Dementia Plan: -CT of the chest shows : Impression: "There is a focal ill-defined 1.3 cm parenchymal opacity which is not solid, located in a subpleural location of the posterolateral right lower lobe, the epicenter is on image 65. This could represent focal atelectasis or infiltrate but follow-up is suggested. There is diffuse increased density of the visualized vertebral bodies. I suspect this represents renal osteodystrophy. Metastatic disease cannot be excluded." -Still awaiting bed at [facility] -Recommend bone marrow biopsy as outpatient -Continue his hemodialysis on regularly scheduled days per management from the nephrology team. VS,Fishbone, I+O VS, Fishbone, I+O Laboratory Tests 03/26/21 13:48 Vital Signs Date Time Temp Pulse Resp B/P (MAP) Pulse Ox O2 Delivery O2 Flow Rate FiO2 03/27/21 11:04 18 03/27/21 06:00 97.9 62 91/50 (64) 98 Room Air I&O- Last 24 Hours up to 6 AM 03/27/21 06:00 Intake Total 1989 ml Balance 1989 ml FANTA AMBROSIO DO March 27, 2021 12:20
[2021-03-27] MEDS: RAMELTEON 8 MG TAB (ROZEREM) PO PRN (20:47)
[2021-03-27] MEDS: ATORVASTATIN 20 MG TAB PO SCH (20:47)
[2021-03-27 20:48] VITALS: BP 130/55
[2021-03-27] MEDS: ACETAMINOPHEN TAB 650MG DOSE (2X325MG) PO PRN (20:48)
[2021-03-28] MEDS: LACOSAMIDE 50 MG TAB (VIMPAT) PO SCH ×2 (06:39→21:36)
[2021-03-28] MEDS: CYANOCOBALAMIN 500 MCG TAB PO SCH (06:40)
[2021-03-28] MEDS: CALCIUM/VITAMIN D 500 MG TAB PO SCH (06:40)
[2021-03-28 06:41] VITALS: BP 134/56
[2021-03-28] MEDS: traMADol 50 MG TAB PO PRN ×3 (06:41→23:32)
--- NOTE | 2021-03-28 06:52 | IPN ---
PROGRESS NOTE DATE: 03/27/2021 SUBJECTIVE: The patient was seen and examined at the bedside today morning. The patient is afebrile, hemodynamically stable. He reports a moderate amount of left leg pain, otherwise denies any active complaints at this time. OBJECTIVE: Vital signs: Temperature is 97.9 degrees Fahrenheit, blood pressure 91/50, pulse is 61, respiratory rate of 20, saturating 98% on room air. Intake and output: Urine output is not recorded. Weight in the bed scale is not available. PHYSICAL EXAMINATION: General: The patient is alert, awake and oriented x3, lying in bed in no apparent distress. Head and neck examination: Extraocular muscles are intact. Pupils equally round and reactive to light. Mucous membranes are moist. Neck is supple. There is no jugular venous distention (JVD). Cardiovascular: S1, S2, regular rate. 1+ edema in the bilateral lower extremities. Respiratory: Chest is clear to auscultation bilaterally. Bilateral equal air entry. No rales or rhonchi. Abdomen: Soft, positive bowel sounds. Nontender. No organomegaly. Musculoskeletal; Decreased range of movement in the bilateral lower extremities. Left leg is weaker than the right one and he has left hip pain as well. Both legs are externally rotated. AV access: The patient has a AV graft in the left thigh. CLIENT SUPPORT ASSOCIATE: The patient is bedridden and weak lower extremities. Otherwise, he is awake and able to communicate. LABORATORY REVIEW: Complete blood count (CBC) is from yesterday with a hemoglobin of 9.4 and basic metabolic panel (BMP) is also from yesterday with a potassium of 4.3 and creatinine of 4.9. CURRENT INPATIENT MEDICATIONS: The patient's medications were all reviewed by myself. There is no significant change in the medications today as compared with yesterday. ASSESSMENT AND PLAN: 1. End-stage renal disease. The patient's regular dialysis days are Monday, , Monday. However, his electrolytes are within acceptable range and volume status is optimal. The patient will be dialyzed tomorrow morning. There is no urgent need of dialysis today. 2. Anemia and end-stage renal disease. The patient's hemoglobin level is stable and improving. Continue current dose of Aranesp 200 mg with dialysis. 3. Thrombocytopenia. Latest platelet count is 47. The patient gets heparin free dialysis. 4. Left hip fracture. The patient is pending transfer to [facility]. He has multiple medical comorbidities and is high risk for surgical procedure.
[2021-03-28 09:15] LABS: BASO % 0.3 % (0.0-1.0); EOS # 0.1 10^3/uL (0.0-0.5); EOS % 2.9 % (0.0-3.0); HEMATOCRIT 25.4 % (42.0-52.0); HEMOGLOBIN 7.8 g/dl (13.5-17.5); LYMPH # 0.4 10^3/uL (1.5-5.0); MEAN CORPUSCULAR HEMOGLOBIN 28.2 pg (27.0-33.0); MEAN CORPUSCULAR HGB CONC 30.7 g/dl (32.0-36.5); MEAN CORPUSCULAR VOLUME 91.7 fl (80.0-96.0); MONO # 0.2 10^3/uL (0.0-0.8); MONO % 7.6 % (2.0-8.0); NEUTROPHILS # 2.3 10^3/uL (1.5-8.5); NEUTROPHILS % 74.6 % (36.0-66.0); RED BLOOD COUNT 2.77 10^6/uL (4.30-6.10); WHITE BLOOD COUNT 3.1 10^3/uL (4.0-10.0)
[2021-03-28 09:17] LABS: PLATELET COUNT, AUTOMATED 51 10^3/uL (150-450)
[2021-03-28 09:30] LABS: ALBUMIN 2.7 GM/DL (3.2-5.2); BILIRUBIN,TOTAL 0.3 MG/DL (0.2-1.0); CALCIUM LEVEL 9.1 MG/DL (8.8-10.2); CREATININE FOR GFR 6.79 MG/DL (0.70-1.30); GLOMERULAR FILTRATION RATE 10.4 (>42); MAGNESIUM LEVEL 1.8 MG/DL (1.8-2.4); POTASSIUM SERUM 4.4 MEQ/L (3.5-5.1); TOTAL PROTEIN 5.8 GM/DL (6.4-8.2)
--- NOTE | 2021-03-28 11:22 | IPNPDOC ---
Text Note Date of Service The patient was seen on 03/28/21. NOTE Hospitalist Progress Note Subjective: Patient seen and evaluated while at dialysis today. He continues to complain of sore/aching pain in the left hip and buttocks region, but otherwise does not have any new or acute complaints at this time. Remainder review of systems is negative. Objective: General: Awake, alert. Not in any acute distress. HEENT: Head normocephalic, atraumatic, sclera are nonicteric. Hearing is grossly intact to conversation. Respiratory: Clear to auscultation bilaterally with no wheezes, rales, or rhonchi. Cardiovascular: Regular rate and rhythm, with no rubs, gallops, or murmur. Abdomen: Soft, nontender, nondistended, no hepatosplenomegaly appreciated. Bowel sounds present. Extremities: 2+ pulses in the radial and dorsalis pedis bilaterally. No evidence of clubbing or cyanosis. Assessment: -Pathologic left femoral neck fracture -End-stage renal disease on dialysis, management per nephrology -Hypokalemia, intermittent, corrected with dialysis -Anemia of chronic disease, not requiring transfusion at this time -Thrombocytopenia, chronic -Pancytopenia -History of subdural hematoma treated at [facility] -Hypertension -Seizure disorder -Osteoporosis -Dementia Plan: -CT of the chest shows parenchymal opacity, but it is not a solid lesion. Presumed to be focal atelectasis or infiltrate. Currently he does not have any respiratory complaints at this time. No fevers or other infectious symptoms at this time. We'll continue to follow. -Still awaiting bed. I spoke with orthopedics yesterday, and we do not actually have an accepting physician at any facility, and they will continue to call on a daily basis to appropriate tertiary care centers and try to find a bed for him. -Recommend bone marrow biopsy as outpatient -Continue his hemodialysis on regularly scheduled days per management from the nephrology team. -Continue the remainder of his home medications at their usual dose for his chronic medical conditions. VS,Fishbone, I+O VS, Fishbone, I+O Laboratory Tests 03/28/21 08:39 Vital Signs Date Time Temp Pulse Resp B/P (MAP) Pulse Ox O2 Delivery O2 Flow Rate FiO2 03/28/21 07:11 16 03/28/21 06:41 97.3 59 134/56 (82) 99 Room Air I&O- Last 24 Hours up to 6 AM 03/28/21 06:00 Intake Total 1080 ml Balance 1080 ml FANTA AMBROSIO DO March 28, 2021 11:22
[2021-03-28 15:14] LABS: SOLUBLE TRANSFERRIN RECEPTOR 11.6 nmol/L (12.2-27.3)
[2021-03-28] MEDS: BISACODYL 5 MG TAB PO PRN (17:32)
[2021-03-28 19:53] LABS: TOTAL PROTEIN 5.3 GM/DL (6.4-8.2)
[2021-03-28 21:32] VITALS: BP 115/53
[2021-03-28] MEDS: ATORVASTATIN 20 MG TAB PO SCH (21:36)
[2021-03-28] MEDS: ACETAMINOPHEN TAB 650MG DOSE (2X325MG) PO PRN (21:37)
[2021-03-28 21:47] VITALS: BP 119/54
--- NOTE | 2021-03-28 21:58 | IPN ---
NEPHROLOGY PROGRESS NOTE DATE: 03/28/2021 SUBJECTIVE: Patient was seen and examined at the bedside today morning during hemodialysis procedure. He is tolerating the hemodialysis procedure well. He denies any active complaints at this time. OBJECTIVE: VITAL SIGNS: Temperature 97.3 degrees Fahrenheit, blood pressure 134/56, pulse 59, respiratory rate 16, saturating 99% on room air. INTAKE/OUTPUT: Urine output is not recorded. Weight in the bed scale is not available. PHYSICAL EXAMINATION: GENERAL: Patient is awake, alert, oriented x3, lying in bed getting hemodialysis done. HEAD/NECK: Extraocular muscles intact. Pupils equally round and reactive to light. Mucous membranes are moist. Neck is supple. There is no significant JVD. CARDIOVASCULAR: S1, S2, regular rate. 1+ edema of the lower extremities. RESPIRATORY: Chest is clear to auscultation bilaterally. Bilateral equal air entry. No rales or rhonchi. ABDOMEN: Soft, positive bowel sounds, nontender. MUSCULOSKELETAL: Decreased range of movement of bilateral lower extremities. He has pain in the left hip on movement of the leg. LOADER HELPER: No focal deficit. He is able to move bilateral upper extremities and follow commands. AV ACCESS: Left thigh AV graft is being used for dialysis. LAB REVIEW: CBC showed WBC 3.1, hemoglobin 7.8, platelets 51,000. BMP showed sodium 135, potassium 4.4, chloride 102, bicarb 27, BUN 38, creatinine 6.7. CURRENT INPATIENT MEDICATIONS: Patient's medications were all reviewed by myself. No significant change in the medications today as compared with yesterday. ASSESSMENT AND PLAN: 1. End-stage renal disease: Patient is being dialyzed today. Ultrafiltration goal will be 1 liter as tolerated by his blood pressure. 2. Anemia and end-stage renal disease: Continue current dose of Aranesp. Hemoglobin has dropped. He has thrombocytopenia as well. I am going to give him 1 unit of PRBC transfusion. 3. Thrombocytopenia: Patient gets Heparin free dialysis. 4. Left hip fracture: Patient has multiple comorbidities including thrombocytopenia, physical deconditioning, Nando lift dependent. Orthopedic surgery is trying to have him transferred to [facility].
[2021-03-28 22:33] VITALS: BP 123/54
[2021-03-28 23:33] VITALS: BP 127/56
[2021-03-29 00:33] VITALS: BP 128/54
[2021-03-29 01:29] VITALS: BP_SYST 131; BP_DIAS 53; BP_DIAS 55
[2021-03-29 02:32] VITALS: BP 137/57
[2021-03-29] MEDS: traMADol 50 MG TAB PO PRN ×2 (06:24→17:30)
[2021-03-29 06:28] VITALS: BP 136/57
[2021-03-29] MEDS: CYANOCOBALAMIN 500 MCG TAB PO SCH (09:13)
[2021-03-29] MEDS: CALCIUM/VITAMIN D 500 MG TAB PO SCH (09:13)
[2021-03-29] MEDS: ACETAMINOPHEN TAB 650MG DOSE (2X325MG) PO PRN ×2 (09:13→20:43)
[2021-03-29] MEDS: BISACODYL 5 MG TAB PO PRN (09:13)
[2021-03-29] MEDS: LACOSAMIDE 50 MG TAB (VIMPAT) PO SCH ×2 (09:13→20:43)
[2021-03-29 09:15] LABS: BASO % 0.3 % (0.0-1.0); EOS # 0.1 10^3/uL (0.0-0.5); EOS % 3.1 % (0.0-3.0); HEMATOCRIT 33.3 % (42.0-52.0); LYMPH # 0.5 10^3/uL (1.5-5.0); LYMPH % 13.1 % (24.0-44.0); MEAN CORPUSCULAR HEMOGLOBIN 28.5 pg (27.0-33.0); MEAN CORPUSCULAR HGB CONC 30.9 g/dl (32.0-36.5); MEAN CORPUSCULAR VOLUME 92.2 fl (80.0-96.0); MONO # 0.4 10^3/uL (0.0-0.8); MONO % 11.4 % (2.0-8.0); NEUTROPHILS # 2.6 10^3/uL (1.5-8.5); NEUTROPHILS % 71.3 % (36.0-66.0); RED BLOOD COUNT 3.61 10^6/uL (4.30-6.10); WHITE BLOOD COUNT 3.6 10^3/uL (4.0-10.0)
[2021-03-29 09:16] LABS: HEMOGLOBIN 10.3 g/dl (13.5-17.5); PLATELET COUNT, AUTOMATED 46 10^3/uL (150-450)
[2021-03-29 10:40] LABS: ALBUMIN 2.8 GM/DL (3.2-5.2); BILIRUBIN,TOTAL 0.3 MG/DL (0.2-1.0); CALCIUM LEVEL 9.3 MG/DL (8.8-10.2); CREATININE FOR GFR 4.62 MG/DL (0.70-1.30); GLOMERULAR FILTRATION RATE 16.2 (>42); MAGNESIUM LEVEL 1.9 MG/DL (1.8-2.4); POTASSIUM SERUM 4.6 MEQ/L (3.5-5.1); TOTAL PROTEIN 5.8 GM/DL (6.4-8.2)
[2021-03-29] MEDS ORDERED: BUPIVACAINE HCL 0.25% 10ML VIAL As Ordered ONE (11:28)
--- NOTE | 2021-03-29 13:46 | IPN ---
PROGRESS NOTE DATE: 03/29/2021 SUBJECTIVE: Patient was seen and examined at the bedside today morning. He is afebrile, hemodynamically stable. He was given 1 unit of PRBC transfusion. Hemoglobin is better. He still reports a moderate amount of pain in the left hip. He was dialyzed yesterday. He tolerated the hemodialysis procedure well. OBJECTIVE: VITAL SIGNS: Temperature is 97.6 degrees Fahrenheit, blood pressure is 136/57, pulse is 58, respiratory rate is 17, saturating 95% on room air. INTAKE AND OUTPUT: Urine output is not recorded, ultra filtration with hemodialysis was 1 liter. GENERAL APPEARANCE: Patient is awake, alert and oriented x3, laying in bed, mild painful distress. HEAD AND NECK: Extraocular muscles intact. Pupils equally round and reactive to light. Mucous membranes are moist. Neck is supple. There is no JVD. CARDIOVASCULAR: S1 and S2, regular rate. Trace edema on the bilateral lower extremities. RESPIRATORY: Clear to auscultation bilaterally. Bilateral equal air entry. No rales or rhonchi. ABDOMEN: Soft, positive bowel sounds. Nontender. No organomegaly. MUSCULOSKELETAL: Decreased range of movement of bilateral lower extremities. He has pain in the left hip. AV graft in the thigh is noted. EMR ANALYST: No focal deficit of bilateral upper extremities. Patient is able to communicate and moves bilateral upper extremities. LABORATORY DATA: CBC showed a WBC of 3.6, hemoglobin 10.3, platelets 46, BNP showed sodium of 137, potassium 4.6, chloride 103, bicarbonate 28, BUN 25, creatinine is 4.6. AST 12, ALT is 9. Alkaline phosphatase is 360. Albumin is 2.8. CURRENT INPATIENT MEDICATIONS: The patient's medications are all reviewed by myself. There is no significant change in the medications today as compared with yesterday. ASSESSMENT AND PLAN: 1. Endstage renal disease. Patient was dialyzed yesterday. Volume status is optimal. Next dialysis will be done tomorrow morning. 2. Anemia and endstage renal disease. Hemoglobin level was suboptimal at 7.8 yesterday, he was given 1 unit of PRBC transfusion. Hemoglobin level is stable and better. 3. Thrombocytopenia. Platelet counts are persistently below 50,000. He is getting Heparin free dialysis. 4. Left hip fracture. Patient is a poor surgical candidate because of multiple comorbidities and thrombocytopenia. As per Orthopedic's note, they are trying to have him transferred to [place].
--- NOTE | 2021-03-29 16:00 | DS.PDOC ---
Discharge Summary General Date of Admission March 22, 2021 at 21:24 Date of Discharge 03/29/2021 Discharge Summary ATTENDING AT TIME OF DISCHARGE: Dr. 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 -Pancytopenia Known anemia of chronic disease related to end-stage renal disease Chronic thrombocytopenia, although the onset is unknown -End-stage renal disease on hemodialysis: Monday, , Monday schedule -Thrombosed left upper extremity AV fistula. Left thigh hemodialysis graft which is currently being used. -Peripheral vascular disease with multiple stents in the lower extremities -History of recent subdural hematoma -History of prior stroke -History of hepatitis C -History of seizure disorder -Dementia HPI & HOSPITAL COURSE: Mr. Carson is a 75-year-old -[place] Citizen male who was brought to the emergency department on 03/22/2021 for evaluation of left hip pain. His history seems difficult to piece together. The patient himself suffers from mild dementia, and is not an excellent historian, and his family members have tried as best they can explain what happened. Apparently one year ago the patient was living in [facility] and presented to [facility], at that time he was found to have a "hip fracture" and was brought to the OR for a hip replacement. Apparently he has suffered from left hip pain ever since that event. The confusing thing is that he does have a right hip replacement, but there is no evidence of surgery on the left side. Apparently he did suffer a fall approximately 1 month ago where his wheelchair tipped over backwards and he hit his head and suffered a subdural hematoma for which he was treated at [facility], and then he went to [place], [place] for rehabilitation thereafter. Due to the manner of this fall although, he did not land on his hip since he was seated in the wheelchair and it simply tripped backwards, therefore the family does not believe that this is the fall that caused his left hip fracture. Nevertheless while in rehabilitation he suffered from intractable left hip pain, and that is why he was brought to our emergency room at this time. Please see H&P from this admission for additional details regarding his past medical history, etc CT scan of the left hip revealed a permeated appearing anteriorly angulated left femoral neck fracture suspicious for pathologic fracture. Our orthopedic team felt it would be better if the patient were under the care of an orthopedic oncologist, a service that is not available at [facility], therefore we have been attempting to transfer the patient to an appropriate facility. In the meantime, while he has been here we have made an attempt to discover any evidence of where the primary cancer lesion may be. CT scan of the abdomen and pelvis did show diffuse increased vertebral body density suggestive of renal osteodystrophy versus metastatic disease, particularly prostate. PSA however is negative. CT of the chest that show a focal ill-defined 1.3 cm parenchymal opacity which is not solid, located in a subpleural location of the posterior lateral right lower lobe which could represent focal atelectasis or infiltrate, but it is unlikely that this is the primary site for the patient's cancer. He has not had any clinical signs of pneumonia & no respiratory complaints. PHYSICAL EXAMINATION ON DISCHARGE: GENERAL: Awake, alert. He is not a good historian. He does not appear to be in any acute distress. His only complaint is that of left hip pain. CARDIOVASCULAR EXAMINATION: Regular rate and rhythm, with no rubs, gallops, or murmur. RESPIRATORY EXAMINATION: Clear to auscultation bilaterally with no wheezes, rales, or rhonchi. ABDOMINAL EXAMINATION: Soft, nontender, nondistended. Bowel sounds present. DISPOSITION: Transfer to [facility] in [place], [place] DISCHARGE INSTRUCTIONS: Follow-up with admitting physician Dr. Richa MD upon arrival. Bedrest. Renal Diet. Transport via ambulance. Vital Signs/I&Os Vital Signs Date Time Temp Pulse Resp B/P (MAP) Pulse Ox O2 Delivery O2 Flow Rate FiO2 03/29/21 12:11 66 18 99 Room Air 03/29/21 11:25 98.0 03/29/21 06:28 136/57 (83) I&O- Last 24 Hours up to 6 AM 03/29/21 06:00 Intake Total 760 ml Output Total 1000 ml Balance -240 ml Laboratory Data Labs 24H Laboratory Tests 2 03/28/21 19:18: Total Protein (PEP) 5.3L 03/29/21 08:58: Immature Granulocyte % (Auto) 0.8, Neutrophils (%) (Auto) 71.3H, Lymphocytes (%) (Auto) 13.1L, Monocytes (%) (Auto) 11.4H, Eosinophils (%) (Auto) 3.1H, Basophils (%) (Auto) 0.3, Neutrophils # (Auto) 2.6, Lymphocytes # (Auto) 0.5L, Monocytes # (Auto) 0.4, Eosinophils # (Auto) 0.1, Basophils # (Auto) 0.0, Nucleated Red Blood Cells % (auto) 0.0, Immature Platelet Fraction 14.7H, Anion Gap 6L, Glomerular Filtration Rate 16.2L, Calcium Level 9.3, Magnesium Level 1.9, Total Bilirubin 0.3, Aspartate Amino Transf (AST/SGOT) 12, Alanine Aminotransferase (ALT/SGPT) 9L, Alkaline Phosphatase 360H, Total Protein 5.8L, Albumin 2.8L, Albumin/Globulin Ratio 0.9 CBC/BMP Laboratory Tests 03/29/21 08:58 Microbiology Microbiology 03/25/21 Respiratory Virus Panel (PCR) ([facility]) - Final, Complete Discharge Medications Scheduled Acetaminophen (Tylenol Extra Strength) 500 Mg Tablet, 1,000 MG PO DAILY, (Reported) Amlodipine Besylate (Amlodipine Besylate) 10 Mg Tablet, 10 MG PO DAILY, (Reported) HOLD IF SBP<100 Apixaban (Eliquis) 5 Mg Tablet, 5 MG PO BID, (Reported) Atorvastatin Calcium (Atorvastatin Calcium) 80 Mg Tablet, 80 MG PO QHS, (Reported) Doxepin HCl (Silenor) 3 Mg Tablet, 3 MG PO QHS, (Reported) Lacosamide (Vimpat) 100 Mg Tablet, 100 MG PO BID, (Reported) Lacosamide (Vimpat) 50 Mg Tablet, 50 MG PO 3XW, (Reported) TAKES ON MONDAY, MONDAY AND MONDAY AT 1700 Lisinopril (Lisinopril) 10 Mg Tablet, 10 MG PO DAILY, (Reported) HOLD IF SBP<100 Scheduled PRN Acetaminophen (Tylenol Extra Strength) 500 Mg Tablet, 1,000 MG PO DAILY PRN for PAIN, (Reported) Bisacodyl (Bisacodyl) 5 Mg Tablet.dr, 5 MG PO DAILY PRN for CONSTIPATION, (Reported) IF LACTULOSE IS INEFFECTIVE Bisacodyl (Dulcolax) 10 Mg Supp.rect, 10 MG VT DAILY PRN for CONSTIPATION, (Reported) IF BISACODYL TABLET IS INEFFECTIVE Lactulose (Lactulose) 10 Gm/15 Ml Solution, 30 ML PO DAILY PRN for CONSTIPATION, (Reported) IF NO BM IN 3 DAYS Loperamide HCl (Loperamide) 2 Mg Capsule, 2 MG PO Q4H PRN for AFTER EACH LOOSE STOOL, (Reported) Allergies Coded Allergies: Iodinated Contrast Media (Verified Allergy, Unknown, 03/22/21) lidocaine (Verified Allergy, Unknown, 03/22/21) oxycodone (Verified Allergy, Unknown, 03/22/21) FANTA AMBROSIO DO March 29, 2021 16:00
[2021-03-29] MEDS: ATORVASTATIN 20 MG TAB PO SCH (20:43)
[2021-03-29 22:35] VITALS: BP 142/56
[2021-03-29 23:50] VITALS: BP 147/63
[2021-03-30 13:16] LABS: ALBUMIN % 57.6 % (55.8-66.1); ALPHA-1-GLOBULIN % 7.2 % (2.9-4.9); ALPHA-2-GLOBULINS % 15.3 % (7.1-11.8); BETA-1-GLOBULINS % 4.4 % (4.7-7.2); BETA-2-GLOBULINS % 6.3 % (3.2-6.5); GAMMA GLOBULIN % 9.2 % (11.1-18.8)
[2021-03-30 13:17] LABS: ALBUMIN 3.05 GM/DL (3.29-5.55); ALPHA-1-GLOBULINS 0.38 GM/DL (0.17-0.41); ALPHA-2-GLOBULINS 0.81 GM/DL (0.42-0.99); BETA-1-GLOBULINS 0.23 GM/DL (0.28-0.60); BETA-2-GLOBULINS 0.33 GM/DL (0.19-0.55); GAMMA GLOBULINS 0.49 GM/DL (0.65-1.58)
[2021-03-30 18:07] LABS: FREE KAPPA LIGHT CHAINS SERUM 115.2 mg/L (3.3-19.4); FREE LAMBDA LIGHT CHAINS SERUM 77.1 mg/L (5.7-26.3); KAPPA/LAMBDA RATIO SERUM 1.49 (0.26-1.65)
--- NOTE | 2021-03-31 14:48 | REP ---
INDICATION: bone marrow biopsy. COMPARISON: None. TECHNIQUE: The procedure was performed under the direct supervision of Dr. Prado. The risks and benefits of the procedure were explained to the patient and informed consent was obtained. The right iliac crest was localized using CT guidance. The skin was prepped and draped in a sterile fashion. 1% lidocaine was used as a local anesthetic. Using CT guidance an 11 gauge coaxial needle biopsy system was inserted and 4 cc of marrow fluid was withdrawn. One core biopsy sample was then obtained. The patient tolerated the procedure well and there were no immediate complications. After the appropriate amount to monitor convalescence the patient was discharged from the department. FINDINGS: None IMPRESSION: CT-guided right iliac bone marrow biopsy. <Electronically signed by Dank Interiano > 03/29/21 1527 <Electronically signed by Max Prado > 03/31/21 1954
== END 2021-03-30 00:06 | disposition short-term general hospital (02) | DRG 542 ==
LOC: M ED 17:36 → M ED INP 21:24 → ENRESERV 23:43 → M MS5PR 03-23 02:02
PROVIDERS: ADMIT Family Medicine; ATTEND Neuromusculoskeletal Medicine & OMM
PROC: 079T3ZX Drainage of Bone Marrow, Percutaneous Approach, Diagnostic (ICD-10-PCS; principal; 2021-03-29 11:30)
DX: M84.452A Pathological fracture, left femur, initial encounter for fracture (principal); N18.6 End stage renal disease; D61.818 Other pancytopenia; J98.11 Atelectasis; D46.C Myelodysplastic syndrome with isolated del(5q) chromosomal abnormality; I10 Essential (primary) hypertension; F03.90 Unspecified dementia, unspecified severity, without behavioral disturbance, psychotic disturbance, mood disturbance, and anxiety; G40.909 Epilepsy, unspecified, not intractable, without status epilepticus; N25.0 Renal osteodystrophy; B18.2 Chronic viral hepatitis C; Z86.73 Personal history of transient ischemic attack (TIA), and cerebral infarction without residual deficits; Z96.641 Presence of right artificial hip joint; Z79.899 Other long term (current) drug therapy; Z88.5 Allergy status to narcotic agent; Z88.8 Allergy status to other drugs, medicaments and biological substances; I73.9 Peripheral vascular disease, unspecified; Z87.891 Personal history of nicotine dependence; E87.5 Hyperkalemia; D46.20 Refractory anemia with excess of blasts, unspecified